=== PATIENT | male | born 1975 | race Two or more races ===

== ENCOUNTER 2024-09-26 14:12 | Emergency (ER) | payer OTHER ==
[~2024-09-26] VITALS: Ht 175.3 cm; Wt 60.8 kg
[2024-09-26] MEDS ORDERED: CEFTRIAXONE SODIUM 2,000 MG VIAL IV STA (14:38)
[2024-09-26] MEDS ORDERED: KETOROLAC TROMETHAMINE 30 MG VIAL IV STA (14:38)
[2024-09-26] MEDS ORDERED: KETOROLAC TROMETHAMINE 30 MG VIAL ONE (14:45)
[2024-09-26] MEDS ORDERED: CEFTRIAXONE SODIUM 2,000 MG VIAL ONE (14:46)
== END 2024-09-26 15:42 | disposition home or self-care (01) ==
LOC: ER 14:14
DX: L02.416 Cutaneous abscess of left lower limb (principal)

== ENCOUNTER 2025-06-18 07:36 | Emergency (ER) | payer OTHER ==
[~2025-06-18] VITALS: Ht 175.3 cm; Wt 59.0 kg
[2025-06-18 09:56] LABS: BASO % 2.0 % (0.1-1.2); EOS # 0.30 (0.04-0.54); EOS % 4.3 % (0.7-7.0); LYMPH # 1.29 (1.18-3.74); LYMPH % 18.5 % (19.3-53.1); MEAN PLATELET VOLUME 10.30 fl (9.4-12.4); MONO # 0.83 (0.24-0.82); MONO % 11.9 % (4.7-12.5); NEUT # 4.40 (1.56-6.13); NEUT % 62.9 % (34.0-71.1); RED CELL DISTRIBUTION WIDTH 13.5 % (11.6-14.4)
[2025-06-18 10:21] LABS: ALT/SGPT 126 U/L (12-78); AST/SGOT 257 U/L (15-37); BILIRUBIN TOTAL 0.45 mg/dL (0.3-1.2); BUN CREA RATIO 4 (7.0-25.0); CREATININE SERUM 0.54 mg/dL (0.70-1.30); GFR 161.05; GLOBULINA 3.9 G/DL (2.4-3.5); GLUCOSE FASTING 86 mg/dL (65-100); OSMOLALITY SERUM 273 MOSM/KG (275-295)
[2025-06-18 10:27] LABS: INR 0.95
[2025-06-18 10:36] LABS: URINE APPEARANCE Clear; URINE BILIRRUBIN Negative (NEGATIVE); URINE BLOOD Negative; URINE COLOR Yellow; URINE GLUCOSE Negative (NEGATIVE); URINE KETONE Negative (NEGATIVE); URINE LEUKOCYTE Negative; URINE NITRATE Negative; URINE PROTEIN Negative (NEGATIVE); URINE UROBILINOGEN 0.2 E.U./dl
[2025-06-18 10:39] LABS: URINE EPITHELIAL CELLS 1.5 uL (0.0-38.8)
[2025-06-18 10:49] LABS: URINE BACTERIA 0 uL (0.0-1933); URINE CAST 0.00 uL (0.0-1.40); URINE RBC 1.1 uL (0.0-20.8); URINE WBC 1.3 uL (0.0-23.2)
[2025-06-18 11:01] LABS: ob POSITIVE (NEGATIVE)
== END 2025-06-18 15:00 | disposition home or self-care (01) ==
LOC: ER 07:37
PROVIDERS: Physician Assistant Medical
DX: K64.9 Unspecified hemorrhoids (principal); Z86.59 Personal history of other mental and behavioral disorders